=== PATIENT | male | born 1960 | race Caucasian/White ===

== ENCOUNTER 2017-07-19 16:31 | Outpatient (CLI) | payer OTHER ==
--- NOTE | 2017-07-19 23:12 | MRI ---
MRI CERVICAL SPINE: 07/19/17 HISTORY: Cervical radiculopathy, M54.12. Multiplanar and multisequence noncontrast enhanced MRI images cervical spine obtained. Comparison made to previous exam from 11/15/13. Marrow signal is unremarkable. C1-2: Unremarkable. C2-3: There is a broad based disc osteophyte complex centrally compressing the thecal sac resulting in some anterior compression of the thecal sac. No definite evidence of cord compression is seen. Mo derate bilateral neural foraminal narrowing is seen, worse on the right than on the left. C3-4: There is disc desiccation and broad based disc osteophyte complex. This is much larger in the left lateral recess region resulting in moderate to severe left L3-4 lateral recess stenosis. The ri ght neural foramen demonstrates moderate to severe stenosis. There is severe left C3-4 neural forami nal narrowing due to uncovertebral osteophyte hypertrophy. C4-5: Disc desiccation is seen. There is a broad based disc osteophyte complex compressing the theca l sac resulting in moderate central stenosis. There is moderate to severe right and moderate left si ded C4-5 neural foraminal narrowing due to uncovertebral osteophyte hypertrophy. This is not signifi cantly changed since the previous comparison exam. C5-6: There is minimal anterolisthesis of C5 on C6. There is broad based disc osteophyte complex com pressing the thecal sac resulting in mild central spinal stenosis. The neural foramen are patent. C6-7: Disc desiccation is seen. There is a broad based disc bulge resulting in mild but not signific ant degree of central stenosis. The neural foramen are patent. C7-T1: Mild disc desiccation is seen. Minimal left C7-T1 neural foraminal narrowing is seen. The rig ht neural foramen is patent. IMPRESSION: Multilevel mid and upper cervical degenerative changes with osteophytes and neural foraminal narrowi ng as described above. No significant interval change is seen since the previous exam from 11/15/13. POS: AVEL
== END 2017-07-19 16:32 | disposition home or self-care (01) ==
LOC: MRI 16:31
PROVIDERS: ATTEND Internal Medicine
DX: M47.22 Other spondylosis with radiculopathy, cervical region (principal); M50.30 Other cervical disc degeneration, unspecified cervical region; M99.51 Intervertebral disc stenosis of neural canal of cervical region; M25.78 Osteophyte, vertebrae
CPT/HCPCS: 72141

== ENCOUNTER 2018-07-07 07:10 | Outpatient (CLI) | payer BC ==
--- NOTE | 2018-07-07 08:08 | CT ---
CERVICAL SPINE CT SCAN WITHOUT IV CONTRAST: Date: 07/07/18 HISTORY: 57-year-old male with history of radiculopathy, exacerbation of chronic neck pain for decades. Left-s ided pain. COMPARISON: 07/19/17 MRI. FINDINGS: No evidence for overt fracture or facet dislocation. At C2-C3, there is severe bilateral foraminal stenosis with extensive posterior disc osteophytes, wit h mild central canal and moderate bilateral recess stenosis. At C3-C4, there are very extensive disc osteophytes, much worse in the left paracentral region, with severe bilateral lateral recess stenosis, greater on the left side and severe left foraminal stenosis , with moderately severe central canal stenosis. At C4-C5, there is mild lateral recess stenosis and moderate to severe bilateral foraminal stenosis. At C5-C6, there is moderate bilateral recess stenosis and severe left foraminal stenosis and moderate right foraminal stenosis. At C6-C7, there is mild to moderate lateral recess and foraminal stenosis. At C7-T1, there is no significant central canal or foraminal stenosis. IMPRESSION: Variable severity, multilevel, up to severe central canal, lateral recess, and foraminal stenosis, mo st marked at C3-C4 and C2-C3 levels, with little change from prior MRI. POS: AVEL
== END 2018-07-07 07:11 | disposition home or self-care (01) ==
LOC: SCSCT 07:10
PROVIDERS: ATTEND Neurological Surgery
DX: M54.12 Radiculopathy, cervical region (principal); M48.02 Spinal stenosis, cervical region; M99.81 Other biomechanical lesions of cervical region
CPT/HCPCS: 72125

== ENCOUNTER 2018-10-01 07:05 | Day surgery (SDC) | payer BC ==
[2018-09-28 17:05] VITALS: BMI 26.5
--- NOTE | 2018-09-30 21:25 | HP ---
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 After conservative methods including injections with Dr. Montez, he hopes to discuss surgery as a possible option. PAST MEDICAL HISTORY: Significant for migraines, reflux, gout, and osteoarthritis. ALLERGIES: NO KNOWN DRUG ALLERGIES. PHYSICAL EXAMINATION: The patient is alert and oriented x3. Gait is normal. Cervical range of motion slightly limited. Bilateral upper extremity motor exam is normal. ASSESSMENT: Cervical radiculopathy. PLAN: Dr. Jerome met with the patient, reviewed imaging, advocated for C3-4 ACDF. He explained to the patient the risks, benefits, and alternatives to the procedure. The patient expressed understanding and elected to move forward with surgery as discussed. I do believe that the patient is mentally competent and capable of making medical decisions for himself and will move forward with surgery as planned. Job ID: [id number]
[2018-10-01] MEDS ORDERED: CEFAZOLIN 2 GM/50 ML BAG ONE ×2 (08:01→15:00)
[2018-10-01] MEDS ORDERED: Midazolam HCl 2 mg/2 ml Vial ONE (08:01)
[2018-10-01] MEDS ORDERED: KETAMINE 100 MG/ML (5ML VIAL) ONE (08:47)
[2018-10-01] MEDS ORDERED: HYDROmorphone 2 MG/ML VIAL ONE ×3 (08:47→12:00)
[2018-10-01] MEDS ORDERED: Fentanyl 100 MCG/2 ML VIAL ONE ×2 (10:35→10:46)
--- NOTE | 2018-10-01 10:42 | OP ---
DATE OF PROCEDURE: 10/01/2018 RECORD SYSTEMS ANALYST: Sagar Lancaster PA-C INDICATION: Pain. DIAGNOSIS: Cervical radiculopathy. PROCEDURES PERFORMED: Anterior cervical diskectomy and fusion C3-C4. ANESTHESIA: General. TECHNIQUE: The patient was brought into the operating room and placed under general anesthesia. He was placed on table in the supine position. A transverse incision was planned over the lateral aspect of the neck on the right. After prepping and draping and after a preoperative pause, the incision was created. The underlying platysma muscle was identified and incised. A blunt tissue plane anterior to the sternocleidomastoid muscle was used to gain access to the prevertebral space. After identifying the appropriate level C-arm fluoroscopy, an annulotomy was performed in the C3-C4 disk space. All disk material was removed. A match stick drill bit was used to drill down large posterior osteophytes in the lateral recesses, the left greater than the right. After decompressing C3-C4, a 7 mm lordotic PEEK cage packed with allograft and autograft material were placed within the interbody space. An anterior cervical plate was then fashioned to the front of the spine and secured with a total of 4 fixed screws. Midline and lateral structures were inspected and found to be free from significant trauma. The wound was irrigated. Hemostasis was maintained throughout. The wound was then closed in anatomic layers and a pressure dressing was applied. There were no known procedural complications. Job ID: [id number]
[2018-10-01] MEDS ORDERED: Tamsulosin HCl 0.4 MG CAP ONE (10:59)
[2018-10-01] MEDS ORDERED: HYDROcodone/Acetaminophen 5/325 mg Tablet ONE (13:12)
[2018-10-01] MEDS ORDERED: Dexamethasone 20 MG/5 ML VIAL ONE (15:01)
[2018-10-01] MEDS ORDERED: ePHEDrine/0.9% NaCl/PF SYRINGE 50 mg/10 ml ONE (15:01)
[2018-10-01] MEDS ORDERED: Ondansetron PF 4 MG/2 ML Vial ONE (15:01)
[2018-10-01] MEDS ORDERED: Ketorolac Tromethamine 30 MG/ML VIAL ONE (15:01)
[2018-10-01] MEDS ORDERED: PHENYLEPHRINE-NS 100 MCG/ML 10 ML SYRINGE ONE (15:01)
[2018-10-01] MEDS ORDERED: PROPOFOL 200 MG/20 ML VIAL ONE (15:01)
[2018-10-01] MEDS ORDERED: Glycopyrrolate 0.2 MG/ML 5 ML SYRINGE ONE (15:01)
== END 2018-10-01 15:16 | disposition home or self-care (01) ==
LOC: SDC 07:05
PROVIDERS: ATTEND Neurological Surgery
PROC: 0RG10A0 Fusion of Cervical Vertebral Joint with Interbody Fusion Device, Anterior Approach, Anterior Column, Open Approach (ICD-10-PCS; principal; 2018-10-01)
PROC: 0RT30ZZ Resection of Cervical Vertebral Disc, Open Approach (ICD-10-PCS; principal; 2018-10-01)
DX: M54.12 Radiculopathy, cervical region (principal); M19.90 Unspecified osteoarthritis, unspecified site; M10.9 Gout, unspecified; K21.9 Gastro-esophageal reflux disease without esophagitis; G43.909 Migraine, unspecified, not intractable, without status migrainosus; Z79.82 Long term (current) use of aspirin; Z79.899 Other long term (current) drug therapy
CPT/HCPCS: 76000; 96374; C1713; C1776; J0131; J1100; J1170; J1885; J2250; J2405; J2704; J3010

== ENCOUNTER 2018-11-29 15:50 | Outpatient (CLI) | payer BC ==
--- NOTE | 2018-11-29 20:04 | MRI ---
MRI LEFT SHOULDER WITHOUT CONTRAST 11/29/18 HISTORY: Shoulder pain, M25.512. COMPARISON: None. FINDINGS: BICEPS TENDON: There is moderate extra-articular biceps tenosynovitis. The intra-articular biceps tendon with inters titial tearing and moderate tendinosis. LABRUM: There is a posterior labral tear at 9 o'clock. There is also superior labral tearing anterior and pos terior to the biceps labral anchor. CARTILAGE: Mild chondral thinning without full thickness defects. ROTATOR CUFF: Full thickness, full width supraspinatus and infraspinatus tendon tears from the footprint retracted to the medial humeral head. Torn fibers are severely tendinotic. The teres minor tendon is intact. Mi ld tendinosis of the subscapularis. Low grade interstitial undersurface partial tearing of the crania d post fibers. MUSCLES: There is greater than 50% atrophy of both the supraspinatus and infraspinatus muscles. The infraspina tus muscle is edematous with interstitial tearing extending along the torn tendon best seen on series 4, image 18. The deltoid musculature is intact. BONES: There was a type II acromion. There is narrowed subacromial space due to lack of rotator cuff tendon s occupying this space. Moderate degenerative disease of the acromioclavicular joints with edema in t he distal clavicle. No adenopathy. IMPRESSION: 1. Full thickness, full width supraspinatus and infraspinatus tendon tears retracted medial to t he humeral head with extensive tendinosis and interstitial tearing of the torn fibers. Greater than 50% atrophy of both the supraspinatus and infraspinatus muscles. 2. Interstitial tearing and tendinosis intra-articular biceps tendon. 3. Superior labral tear anterior and posterior to the biceps labral anchor as well as a posterio r labral tear at 9 o'clock. 4. Large subacromial, subdeltoid bursa effusion with mild synovitis. POS: HOME
== END 2018-11-29 15:51 | disposition home or self-care (01) ==
LOC: SCSMRI 15:50
PROVIDERS: ATTEND Orthopaedic Surgery
DX: M25.512 Pain in left shoulder (principal); M75.102 Unspecified rotator cuff tear or rupture of left shoulder, not specified as traumatic; S46.912A Strain of unspecified muscle, fascia and tendon at shoulder and upper arm level, left arm, initial encounter; S43.402A Unspecified sprain of left shoulder joint, initial encounter; M25.412 Effusion, left shoulder; M65.9 Synovitis and tenosynovitis, unspecified

== ENCOUNTER 2018-12-14 06:07 | Day surgery (SDC) | payer BC ==
[2018-12-13 14:19] VITALS: BMI 25.8
[2018-12-14] MEDS ORDERED: Fentanyl 100 MCG/2 ML VIAL ONE (06:37)
[2018-12-14] MEDS ORDERED: Midazolam HCl 2 mg/2 ml Vial ONE (06:37)
[2018-12-14] MEDS ORDERED: Ropivacaine 0.2% 550 ML 550 ML NERVE BLCK SCH (06:53)
[2018-12-14] MEDS ORDERED: Promethazine HCl 25 MG/ML VIAL IM PRN (06:53)
[2018-12-14] MEDS ORDERED: Ketorolac Tromethamine 30 MG/ML VIAL IVP PRN (06:53)
[2018-12-14] MEDS ORDERED: Zolpidem Tartrate 5 MG TAB PO PRN (06:53)
[2018-12-14] MEDS ORDERED: traMADol HCl 50 MG TAB PO PRN ×2 (06:53)
[2018-12-14] MEDS ORDERED: Ondansetron PF 4 MG/2 ML Vial IVP PRN (06:53)
[2018-12-14] MEDS ORDERED: HYDROcodone/Acetaminophen 10/325 mg Tablet PO PRN ×2 (06:53)
[2018-12-14] MEDS ORDERED: Fentanyl 100 MCG/2 ML VIAL IV PRN (06:58)
[2018-12-14 07:03] LABS: #Lymphocytes 1.2 thou/uL (1.20-3.40); #Monocytes 0.4 thou/uL (0.11-0.59); %Basophils 0.6 % (0.0-1.0); %Eosinophils 1.2 % (0.0-10.0); %Neutrophils 55.3 % (42.0-75.0); Hemoglobin 12.9 g/dL (14.0-18.0); Mean Corpuscular HGB CONC 32.2 g/dL (32.0-36.0); Mean Corpuscular Hemoglobin 34.5 pg (27.0-31.0); Mean Platelet Volume 6.3 fL (7.4-10.4); Platelet Count 184 thou/uL (130-400); RBC Distribution Width 13.8 % (11.5-14.5); Red Blood Cell (RBC) Count 3.74 mill/uL (4.70-6.10); White Blood Cell (WBC) Count 3.7 thou/uL (4.8-10.8)
[2018-12-14 07:11] LABS: Anion Gap 12 mmol/L (10-20); BUN (Urea Nitrogen) 16 mg/dL (8.4-25.7); Calc. Creatinine Clearance 100 mL/min (70-130); Calcium 9.4 mg/dL (7.8-10.44); Carbon Dioxide 29 mmol/L (22-29); Chloride 102 mmol/L (98-107); Estimated GFR-MDRD 82; Glucose 98 mg/dL (70-105); Sodium 139 mmol/L (136-145)
[2018-12-14] MEDS ORDERED: Promethazine HCl 25 MG/ML VIAL ONE (09:01)
[2018-12-14] MEDS ORDERED: EPINEPHrine 1 MG/10 ML Abboject SYRINGE ONE (09:34)
[2018-12-14] MEDS ORDERED: Morphine 2 MG/ML SYRINGE ONE ×2 (10:06→10:21)
[2018-12-14] MEDS ORDERED: HYDROcodone/Acetaminophen 5/325 mg Tablet ONE ×2 (10:48)
[2018-12-14] MEDS ORDERED: Ropivacaine 0.5% HCl/PF (150 MG/30 ML VIAL) ONE (11:09)
[2018-12-14] MEDS ORDERED: Ropivacaine 0.2% HCl/PF (40 MG/20 ML VIAL) ONE (11:09)
[2018-12-14] MEDS ORDERED: Glycopyrrolate 0.2 MG/ML 5 ML SYRINGE ONE (13:40)
[2018-12-14] MEDS ORDERED: Rocuronium Bromide 10 MG/ML (10ML VIAL) ONE (13:40)
[2018-12-14] MEDS ORDERED: PROPOFOL 200 MG/20 ML VIAL ONE (13:40)
[2018-12-14] MEDS ORDERED: Ketorolac Tromethamine 30 MG/ML VIAL ONE (13:40)
[2018-12-14] MEDS ORDERED: Dexamethasone 20 MG/5 ML VIAL ONE (13:40)
[2018-12-14] MEDS ORDERED: Ondansetron PF 4 MG/2 ML Vial ONE (13:40)
--- NOTE | 2018-12-14 14:03 | OP ---
DATE OF PROCEDURE: 12/14/2018 PROCEDURE PERFORMED: Left shoulder open acromioplasty, open rotator cuff debridement. CLINICAL DATA ASSISTANT: Eron Raymundo PA-C ESTIMATED BLOOD LOSS: Minimal. SPECIMENS: None. DRAINS: None. COMPLICATIONS: None. DESCRIPTION OF PROCEDURE: The patient was taken to the operating room, where general anesthesia was induced. The left arm was prepped and draped in sterile fashion. We made a standard deltoid-splitting approach. Anterior and inferior acromioplasty was performed. Irrigation was performed. I mobilized subscapularis. I mobilized the posterior aspect of the cuff, which was retracted at a fair amount. Unfortunately, the tissue was of poor quality. I put traction sutures in the cuff and tissue pulled away. I got all the way down to the teres minor, which appeared to be good tendon, but when I placed stitches, this does also pulled away. There was really not even good tissue to place in an Arthrex patch, which I had in the room. I debrided the rotator cuff. I debrided the stump of the cuff on the greater tuberosity. The biceps then appeared to be in good condition, so I left that alone. Irrigation was performed. Shoulder was closed with #1 Ethibond and subcutaneous tissue with 2-0 Vicryl and vanessa. Job ID: [id number]
== END 2018-12-14 11:55 | disposition home or self-care (01) ==
LOC: SDC 06:07
PROVIDERS: ATTEND Orthopaedic Surgery
DX: M75.122 Complete rotator cuff tear or rupture of left shoulder, not specified as traumatic (principal); S43.432A Superior glenoid labrum lesion of left shoulder, initial encounter; E78.00 Pure hypercholesterolemia, unspecified; M19.90 Unspecified osteoarthritis, unspecified site; M10.9 Gout, unspecified; Z79.1 Long term (current) use of non-steroidal anti-inflammatories (NSAID); Z79.899 Other long term (current) drug therapy
CPT/HCPCS: 36415; 80048; 85025; A4306; J0171; J2250; J2270; J2550; J2795; J3010

== ENCOUNTER 2019-05-09 13:33 | Outpatient (CLI) | payer BC ==
--- NOTE | 2019-05-09 15:27 | CT ---
CT OF THE CERVICAL SPINE WITHOUT CONTRAST: 05/09/19 INDICATION: History of cervical spinal stenosis with continued neck pain that radiates into the upper thoracic sp inal region. History of spinal fusion at C3-C4 in December of 2018. COMPARISON: CT of the cervical spine dated 07/07/18. TECHNIQUE: Multiple CT images were obtained of the cervical spine without IV contrast. Axial, coronal and sagitt al reformatted images were constructed from the raw data. FINDINGS: Since the comparison examination, there has been interval placement of an ACDF and intervertebral dis c cage at C3-C4. The anterior translation of C5 on C6 is stable. The mild anterior translation of C6 on C7 is stable. Craniocervical junction appears within normal limits. At the C2-C3 level, there remains uncovertebral hypertrophy and facet degenerative change inducing mi ld osseous neural foraminal narrowing bilaterally. At C3-4, there is a residual osteophyte complex with facet joint degenerative change likely inducing some residual mild to moderate osseous central canal narrowing which is relatively stable. There is m ild right and moderate left osseous neural foraminal narrowing which appears stable. At C4-5, there is uncovertebral hypertrophy and facet joint degenerative change likely inducing mild left and moderate to severe right osseous neural foraminal narrowing which appears stable. At C5-6, there is uncovertebral hypertrophy and facet degenerative change without appreciable osseous central canal and neural foraminal narrowing. At C6-7, there is no appreciable osseous central canal or neural foraminal narrowing. At C7-T1, there is no appreciable osseous central canal or neural foraminal narrowing. Lung apices demonstrate mild interstitial fibrotic change. The visualized prevertebral soft tissues a ppear within normal limits. IMPRESSION: 1. Interval postoperative change of an ACDF at C3-C4. The mild to moderate central canal narrowi ng at C3-C4 appears similar appearing. The multilevel neural foraminal narrowing is stable. 2. Degenerative anterior translation of C5 on C6 and C6 on C7 is stable. POS: OFF
--- NOTE | 2019-05-09 15:43 | MRI ---
Exam: MRI cervical spine without contrast HISTORY: Cervical spinal stenosis. Neck pain.. COMPARISON: 07/19/2017 FINDINGS: Interval placement of anterior fusion plate at C3 and C4. There is a disc prosthesis at the C3-C4 le phu. Cervical spine vertebral body height is maintained. No fracture. No significant STIR hyperintensity to suggest vertebral body edema or ligamentous injury. 1.5 mm of anterolisthesis of C5 upon C6 and 2.2 mm of anterolisthesis of C6 upon C7. Visualized brain parenchyma, cervicomedullary junction, cervical cord and the upper thoracic cord hav e a normal size and signal intensity C2-C3: Moderate central canal stenosis secondary to a broad-based disc osteophyte complex. Moderate b ilateral neural foraminal narrowing. C3-C4: Central/left paracentral osteophyte ridge. Mass effect and deformity the left hemicord, withou t cord signal abnormality. Moderate narrowing of the left aspect of the central spinal canal. Right neural foramen and left neural foramina are moderately narrowed due to uncal vertebral hypertrophy C4-C5: Broad-based disc bulge effacing the ventral subarachnoid space. There is contact upon the vent ral cord, without T2 hyperintensity in the cord. Mild central canal stenosis. Mild to moderate bilateral foraminal narrowing due to uncovertebral hypertrophy. There is severe bilateral (right grea ter than left) facet hypertrophy. C5-C6: Broad-based disc bulge abuts the thecal sac. Ventral subarachnoid space is effaced. Disc mater ial contacts the ventral aspect of the cord without cord signal abnormality or deformity. Mild central canal stenosis. Right neural foramen is patent. Mild left foraminal narrowing C6-C7: Broad-based disc bulge abuts the thecal sac. Subarachnoid space maintained. Mild central canal stenosis. Neural foramina are patent bilaterally. C7-T1: Broad-based disc bulge abuts the thecal sac. Subarachnoid space is nearly effaced. There is so me mass effect and deformity of the left hemicord. Mild central canal stenosis. Bilaterally, neural foramina are patent. IMPRESSION: 1. Cervical fusion from C3 through C4. 2. Moderate central canal stenosis at C2-C3. 3. Moderate neural foraminal narrowing at C3-C4 and mild to moderate narrowing of the neural foramina at C4-C5. Transcribed Date/Time: 05/09/2019 3:50 PM
--- NOTE | 2019-05-09 15:52 | MRI ---
MRI thoracic spine noncontrast: DATE: 05/09/2019 HISTORY: 58-year-old male with mid thoracic back pain. COMPARISON: None FINDINGS: ACDF hardware at C3 and C4. Severe cervical central spinal canal stenosis with chronic cord compressi on in the cervical spine. See separate report of C-spine MRI. Mild depressions of the superior endplates of T4, T5, and T11 surrounding Schmorl's nodes. Incomplete ly visualized depression of superior endplate of L2 in the lumbar spine. None of these are associated with bone marrow edema. Small focal disc herniations or disc-osteophyte complexes encroach upon the anterior aspect of the sp inal canal at multiple levels. Some of the more prominent such protrusions include: T4-5: Small central disc protrusion mildly indents the ventral surface of spinal cord. T5-6: Small right paracentral focal disc herniation T6-7: Small left lateral disc protrusion minimally indents the left ventral surface of spinal cord. T7-8:Small left lateral disc protrusion minimally indents the left ventral surface of spinal cord. T8-9: Small left lateral disc protrusion minimally indents the left ventral surface of spinal cord an d also minimally displaces the spinal cord to the right. T9-10:Small left lateral disc protrusion minimally indents the left ventral surface of spinal cord. T10-11: Midline and bilateral paracentral broad-based shallow disc protrusion does not contact spinal cord. Conus medullaris terminates at L1. No high-grade central spinal canal stenosis at any level. No major pathology of perivertebral spaces identified. IMPRESSION: 1. Mild old compression fractures of T4, T5, and T11. 2. Mild thoracic spondylosis with multilevel small focal disc herniations or disc-osteophyte complexe s protruding into the spinal canal, some minimally impinging on the spinal cord. 3. No high-grade central spinal canal stenosis at any level in the thoracic spine. 4. Severe central spinal canal stenosis with chronic cord compression in the cervical spine. See sepa rate report of C-spine MRI.
== END 2019-05-09 13:34 | disposition home or self-care (01) ==
LOC: SCSCT 13:33
PROVIDERS: ATTEND Neurological Surgery
DX: M48.02 Spinal stenosis, cervical region (principal); Z98.1 Arthrodesis status; M54.6 Pain in thoracic spine; M47.812 Spondylosis without myelopathy or radiculopathy, cervical region; M48.04 Spinal stenosis, thoracic region; M47.814 Spondylosis without myelopathy or radiculopathy, thoracic region
CPT/HCPCS: 72125; 72141; 72146

== ENCOUNTER 2019-08-17 14:43 | Emergency (ER) | payer BC ==
[2019-08-17] MEDS ORDERED: HYDROmorphone 0.5 MG/0.5 ML SYRINGE ONE (15:18)
[2019-08-17] MEDS ORDERED: Lorazepam 2 MG/ML VIAL ONE (15:58)
--- NOTE | 2019-08-17 17:21 | MRI ---
MRI Cervical Spine WO Con History: Pain Comparison: Cervical spine MRI April 2019 Findings: Exam is nondiagnostic due to severe motion throughout the exam. Large postoperative seroma. Disc space evaluation is unable to be performed. Laminectomy changes upper cervical spine. Impression: Nondiagnostic examination due to severe motion. If necessary, repeat examination under an esthesia with be helpful.
--- NOTE | 2019-08-17 17:51 | MRI ---
MRI Thoracic Spine WO Con History: Pain Comparison: MRI thoracic spine April Findings: No acute fracture no malalignment. No marrow infiltrative process. The superior endplate compression deformities at T4, T5, and T11 are similar. No cord compression. The disc osteophyte complexes are similar with minimal effacement of ventral CSF space. No new disc herniation. Impression: Unchanged examination of the thoracic spine. No cord impingement. Disc osteophyte complex es are similar. No acute fracture.
[2019-08-17 22:08] LABS: Bilirubin Negative (Negative); Blood, Urine Negative (Negative); Clarity Clear (Clear); Glucose, Urine (Dipstick) Normal (Negative); Leukocyte Negative Leu/uL (Negative); Nitrite Negative (Negative); Protein, Urine (Dipstick) Negative (Neg-Trace); Urobilinogen Normal mg/dL (Less than 2)
[2019-08-18] MEDS ORDERED: Morphine 4 MG/ML VIAL ONE (19:40)
== END 2019-08-17 23:22 | disposition short-term general hospital (02) ==
LOC: EEVIPCON 14:43 → ERS 14:43
DX: L76.82 Other postprocedural complications of skin and subcutaneous tissue (principal); R53.1 Weakness; K21.9 Gastro-esophageal reflux disease without esophagitis; E78.5 Hyperlipidemia, unspecified; F41.9 Anxiety disorder, unspecified; F32.9 Major depressive disorder, single episode, unspecified; Z79.899 Other long term (current) drug therapy
CPT/HCPCS: 72141; 72146; 81003; 96374; 96375; J1170; J2060; J2270

== ENCOUNTER 2019-09-17 01:35 | Inpatient (IN) | payer BC ==
[2019-09-17 02:12] LABS: #Basophils 0.1 thou/uL (0.0-0.2); #Eosinphils 0.1 thou/uL (0.0-0.7); #Monocytes 0.9 thou/uL (0.11-0.59); %Basophils 0.6 % (0.0-1.0); %Eosinophils 0.9 % (0.0-10.0); %Lymphocytes 21.8 % (21.0-51.0); %Neutrophils 66.8 % (42.0-75.0); Hemoglobin 9.9 g/dL (14.0-18.0); Mean Platelet Volume 6.3 fL (7.4-10.4); Platelet Count 603 thou/uL (130-400); RBC Distribution Width 15.8 % (11.5-14.5); White Blood Cell (WBC) Count 8.9 thou/uL (4.8-10.8)
[2019-09-17 02:19] LABS: INR-International Normal Ratio 1.2; PTT 38.1 SEC (22.9-36.1); Prothrombin Time 14.9 SEC (12.0-14.7)
[2019-09-17 02:34] LABS: ALT (SGPT) 17 U/L (8-55); AST (SGOT) 36 U/L (5-34); Albumin 3.8 g/dL (3.5-5.0); Alkaline Phosphatase 115 U/L (40-110); Anion Gap 14 mmol/L (10-20); BUN (Urea Nitrogen) 21 mg/dL (8.4-25.7); Bilirubin, Total 0.3 mg/dL (0.2-1.2); Calc. Creatinine Clearance 0 mL/min (70-130); Calcium 9.8 mg/dL (7.8-10.44); Carbon Dioxide 27 mmol/L (22-29); Chloride 96 mmol/L (98-107); Estimated GFR-MDRD 25; Globulin 2.8 g/dL (2.4-3.5); Glucose 96 mg/dL (70-105); Protein, Total 6.6 g/dL (6.0-8.3); Sodium 133 mmol/L (136-145)
[2019-09-17 03:48] LABS: Bacteria/HPF None Seen HPF (None Seen); Bilirubin Negative (Negative); Blood, Urine Negative (Negative); Clarity Turbid (Clear); Glucose, Urine (Dipstick) Normal (Negative); Leukocyte Negative Leu/uL (Negative); Nitrite Negative (Negative); Protein, Urine (Dipstick) 30 mg/dL (Neg-Trace); RBC/HPF 0-3 HPF (0-3); Squamous Epithelial 0-3 HPF (0-3); Urobilinogen Normal mg/dL (Less than 2)
[2019-09-17] MEDS ORDERED: Acetaminophen 325 MG TAB PO PRN (06:04)
[2019-09-17] MEDS ORDERED: fentaNYL 50 mcg/hour Patch TD SCH (06:04)
[2019-09-17] MEDS: Sodium Chloride 0.9% 1,000 ML IV SCH ×2 (06:20→21:13)
--- NOTE | 2019-09-17 06:21 | HP ---
PRIMARY CARE PHYSICIAN: Nadia Tong MD CHIEF COMPLAINT: Altered mental status. 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 He says that he had the surgery, but while he was in the hospital, he developed high fever and developed sepsis. He says he was diagnosed with ESBL E coli and was placed on IV antibiotics. He also says that during his hospitalization, he was also found to have bilateral pulmonary embolisms and was placed on Eliquis. He was treated and then released on this past . When he was at home, he suffered a fall and his partner found him on the floor and states that he was altered. His partner says that his words were jumbled and it was hard to understand, and then yesterday, it was his birthday, and he asked for cake, and says that he took the top part off the cake and put it off to the side and then apparently put some food in an unusual location and seemed confused. The patient himself says he has been having difficulties with word finding for the past year. He says he has been seeing a psychologist for this. He admits to me that he has been very depressed lately and says that he is on an SSRI, but he could not remember the name of it and states that he has been very concerned that he could be developing dementia as his father had Alzheimer disease. Currently, the patient is having extreme difficulty finding words and in fact, it took almost 15 to 20 minutes just to get a partial list of his medications. He has difficulty recollecting what happened to him while he was in the hospital. He does say that he did have an episode of confusion where he had to be placed in restraints and says this was reaction to medications. REVIEW OF SYSTEMS: All systems were reviewed and are negative except for that mentioned in the history of present illness. PAST MEDICAL HISTORY: Significant for migraines, gastroesophageal reflux disease, gout, osteoarthritis, bilateral pulmonary embolisms, restless legs syndrome, depression. He is HIV positive. PAST SURGICAL HISTORY: He has had anterior cervical disk fusion and shoulder arthroplasty. ALLERGIES: NO KNOWN DRUG ALLERGIES. SOCIAL HISTORY: He is a nonsmoker and nondrinker. No children, and he does have a partner. FAMILY HISTORY: Significant for Alzheimer disease in his father. Sister had osteoarthritis. Mother had Parkinson disease. CURRENT MEDICATIONS: Include; 1. Bactrim DS. 2. Prednisone as needed. 3. Fentanyl 75 mcg every three days. 4. Zofran 8 mg as needed. 5. Crestor 20 mg at bedtime. 6. Amitriptyline 50 mg at bedtime. 7. Bupropion XL 300 mg daily. 8. Eliquis 5 mg twice a day. 9. Celebrex 200 mg twice a day. 10. Zonisamide 50 mg t.i.d. 11. Omeprazole 40 mg at bedtime. 12. at bedtime. 13. Carvedilol 6.25 mg twice a day. 14. Valacyclovir 500 mg daily. 15. Requip 2 mg at bedtime. 16. Genvoya daily and an SSRI. PHYSICAL EXAMINATION: GENERAL: He is alert and oriented. He appears to be in no acute distress. He is well developed and well nourished. VITAL SIGNS: Blood pressure 125/60, heart rate 80, respiratory rate of 16, and he is afebrile. HEENT: Pupils are equal, round, and reactive to light. Extraocular muscles are intact. Sclerae are anicteric. Throat, no erythema, no exudates, but he does have dry mucous membranes. NECK: Neck is in a C-collar. LUNGS: Clear to auscultation. No wheezing. No rales. No rhonchi. CARDIOVASCULAR: He has a normal S1 and S2. There is no S3 or S4. No murmurs, clicks, or rubs. ABDOMEN: Obese. It is soft, nontender, and nondistended. Positive for bowel sounds. No rebound. No guarding. No organomegaly. EXTREMITIES: There is no clubbing or cyanosis. No edema. No calf tenderness. No joint effusions. NEUROLOGIC: Grossly nonfocal. LABORATORY DATA: Lab results; white blood cell count 8.9, hemoglobin 9.9, hematocrit is 30, platelet count is 603. INR is 1.2. Sodium 133, potassium 4.0, chloride is 96, CO2 is 27, BUN of 21, creatinine 2.63, glucose is 96. Urinalysis is essentially negative. There was evidence of hyaline casts. ASSESSMENT: This is a 59-year-old gentleman, who presents with altered mental status and a fall, the etiology of which is unknown. It could be medication related as he is on a fairly high dose of the fentanyl patch along with other medications, which are at high risk for falls, including the amitriptyline and Requip. He also was found to have acute kidney injury, which could be due to volume depletion. He is also on Bactrim DS, which can cause an interstitial nephritis and he is also on NSAIDs. 1. For the altered mental status. This seems to be improving. We may need to cut back on the dose of the fentanyl patch and possibly the Requip as well. Also request the records from [facility]. 2. Acute kidney injury. We will place him on IV fluids for gentle hydration. Check the urine electrolytes so as to calculate fractional excretion of sodium as well as check a renal ultrasound and urine eosinophils because of the Bactrim. 3. History of human immunodeficiency virus positive. The patient says he has been human immunodeficiency virus positive for many years since residency. He sees Dr. Aleman regularly and says his viral load has been undetectable. We will consult Dr. Aleman for further recommendations. Continue Genvoya. He will probably need to take . 4. History of pulmonary embolism. Continue Eliquis twice daily. 5. Depression. Need to reconcile and restart his antidepressant medications. We will also consider a PT and OT consult. Job ID: [id number]
[2019-09-17 06:28] VITALS: BMI 23.6
[2019-09-17 07:50] LABS: Creatinine, Urine 39.41 mg/dL (63-166); Sodium, Urine Less than 20 mmol/L (Not Available)
[2019-09-17] MEDS: Carvedilol 6.25 MG TAB PO SCH ×2 (08:16→17:29)
--- NOTE | 2019-09-17 08:47 | ULT ---
Exam: Bilateral renal ultrasound HISTORY: Acute kidney insufficiency. COMPARISON: None FINDINGS: Right kidney: Normal cortical echotexture. No hydronephrosis. Right kidney measurements: 5.2 x 5.5 x 11.6 cm. Left kidney: Normal cortical echotexture. No hydronephrosis Left kidney measurements 5.8 x 5.3 x 11.8 cm. Urinary bladder: Normal mucosa. IMPRESSION: No hydronephrosis.
[2019-09-17] MEDS ORDERED: Apixaban 5 MG TAB PO SCH (09:00)
--- NOTE | 2019-09-17 09:11 | CT ---
PRELIMINARY REPORT/[facility]/EMERGENCY AFTER HOURS PROCEDURE: HISTORY: [id number] presents to ED for evaluation of fall and AMS. Patient had a C spine fusion and laminec melissa at [facility] on 09/02/19. While he was there he was treated for a UTI and a small PE. Pt was discharged . Starting on Monday, the patient c/o muscle weakness to bilateral legs. Par tner reports that today he came home and the patient was on the ground after falling and was altered. Unknown LOC. Partner reports that the patient had normal mental status this morning. Patient denies urinary complaints and incontinence of bowel or bladder. Denies N/V/D. CT LUMBAR SPINE TECHNIQUE: Multiplanar reconstruction. COMPARISON: None. LIMITATIONS: None. FRACTURES: None. ALIGNMENT: Normal. MINERALIZATION: Decreased. VERTEBRA BODIES: L2 upper endplate Schmorl's node. DISC SPACES: Moderately narrowed with vacuum phenomenon at L1-L2. L3-L4 and L4-L5 broad-based disc b ulges, measuring 2.7 mm and 8.0 mm, respectively. POSTERIOR ELEMENTS: Normal. NEUROFORAMEN: Moderate bilateral L4-L5 narrowing. SPINAL CANAL: Mildly narrowed at L3-L4 and moderate to severe narrowing at L4-L5. PARASPINAL TISSUES: Normal. OTHER: None. IMPRESSION: Large L4-L5 broad-based disc bulge with moderately severe spinal canal stenosis. ELECTRONICALLY SIGNED BY: Vivian Barahona M.D. Sep 17, 2019 3:06:30 AM CLINICAL RESEARCH MANAGER This report is intended for review by the ordering physician only, in accordance of law. If you recei ve this report in error, please call [facility] at [phone]. FINAL REPORT CT LUMBAR SPINE WITHOUT CONTRAST: Date: 09/17/19 HISTORY: Fall. Altered mental status. Recent cervical fusion. FINDINGS/IMPRESSION: Chronic changes involving the superior end plate of L2 with associated Schmorl's node. Vertebral body heights are maintained. There is no fracture. There are varying degrees of central canal stenosis an d neural foraminal narrowing on the basis of degenerative change. Limited evaluation by technique. At least mild to moderate central canal stenosis at L3-L4. Moderate to severe central canal stenosis at L4-L5. Mild to moderate central canal stenosis at L5-S1. There is partial obscuration of bilateral t raversing S1 nerve roots. Vacuum disc phenomenon is noted. This report is in agreement with the initial report by [facility]. POS: OFF
--- NOTE | 2019-09-17 09:12 | RAD ---
Exam: Chest one view HISTORY:Fall. Altered mental status. Comparison: None FINDINGS: Cardiac silhouette: Normal Aorta: Unremarkable Pulmonary vessels: Normal Costophrenic angles: Clear LUNGS: No masses or consolidation. Pneumothorax: None Osseous abnormalities: Incompletely evaluated fusion hardware IMPRESSION: No acute cardiopulmonary process.
--- NOTE | 2019-09-17 09:12 | CT ---
PRELIMINARY REPORT/[facility]/EMERGENCY AFTER HOURS PROCEDURE: HISTORY: [id number] presents to ED for evaluation of fall and AMS. Patient had a C spine fusion and laminec melissa at [facility] on 09/02/19. While he was there he was treated for a UTI and a small PE. Pt was discharged . Starting on Monday, the patient c/o muscle weakness to bilateral legs. Par tner reports that today he came home and the patient was on the ground after falling and was altered. Unknown LOC. Partner reports that the patient had normal mental status this morning. Patient denies urinary complaints and incontinence of bowel or bladder. Denies N/V/D. CT THORACIC SPINE TECHNIQUE: Multiplanar reconstruction. COMPARISON: None. LIMITATIONS: None. PRIOR SURGERY/HARDWARE: Status post posterior fusion with hardware spanning from C2 to T3. The hardw are appears intact. FRACTURES: None. ALIGNMENT: Normal. MINERALIZATION: Decreased. VERTEBRA BODIES: Mild compression deformities at T1, T2, T4 and T11. DISC SPACES: Multilevel disc space narrowing and vacuum phenomena. POSTERIOR ELEMENTS: Normal. SPINAL CANAL: No evidence of spinal stenosis. PARASPINAL TISSUES: Postsurgical changes from recent posterior spinal fusion. No soft tissue air or focal fluid collection seen. OTHER: Small strandy densities bilaterally, likely atelectasis/scarring. IMPRESSION: No acute thoracic spine fracture. ELECTRONICALLY SIGNED BY: Vivian Barahona M.D. Sep 17, 2019 3:13:51 AM HAY CHOPPER This report is intended for review by the ordering physician only, in accordance of law. If you recei ve this report in error, please call [facility] at [phone]. FINAL REPORT CT THORACIC SPINE WITHOUT CONTRAST: Date: 09/17/19 HISTORY: Recent cervical fusion. Fall. Pain. FINDINGS/IMPRESSION: There appear to be mild compression fractures at T1, T2, T4, and T11. Sclerosis of the end plates sug gest a chronic process. Correlate clinically. Definite acute fractures are not appreciated. This report is in agreement with the initial report by [facility]. POS: OFF
--- NOTE | 2019-09-17 09:13 | CT ---
PRELIMINARY REPORT/[facility]/EMERGENCY AFTER HOURS PROCEDURE: HISTORY: M59 presents to ED for evaluation of fall and AMS. Patient had a C spine fusion and laminec melissa at [facility] on 09/02/19. While he was there he was treated for a UTI and a small PE. Pt was discharged . Starting on Monday, the patient c/o muscle weakness to bilateral legs. Par tner reports that today he came home and the patient was on the ground after falling and was altered. Unknown LOC. Partner reports that the patient had normal mental status this morning. Patient denies urinary complaints and incontinence of bowel or bladder. Denies N/V/D. CT CERVICAL SPINE TECHNIQUE: Multiplanar reformatted images provided. COMPARISON: None. LIMITATIONS: None. PRIOR SURGERY/HARDWARE: Posterior fusion hardware spanning from C2 to T3. Anterior plate and screw f ixation hardware at C3 and C4 with interbody spacer. No signs of hardware complication. Prior bilat eral C2 to C7 laminectomies. FRACTURES: None. ALIGNMENT: Grade I anterolisthesis of C6 on C7. MINERALIZATION: Decreased. DISC SPACES: Mild diffuse narrowing. POSTERIOR ELEMENTS: Multilevel facet arthropathy and neuroforaminal narrowing. SPINAL CANAL: Limited evaluation due to streak artifact. PARASPINAL SOFT TISSUES: Postsurgical changes at midline in the posterior neck. OTHER: None. CONCLUSION: No acute cervical spine fracture. Postsurgical changes from recent spinal surgery. ELECTRONICALLY SIGNED BY: Vivian Barahona M.D. Sep 17, 2019 3:22:46 AM GEOLOGICAL SAMPLE TESTER This report is intended for review by the ordering physician only, in accordance of law. If you recei ve this report in error, please call [facility] at [phone]. FINAL REPORT CT CERVICAL SPINE WITHOUT CONTRAST: Date: 09/17/19 HISTORY: Cervical fusion and laminectomy at [facility] on 09/02/19. Fall. COMPARISON: 05/09/19. FINDINGS/IMPRESSION: This report is in agreement with the initial report by [facility]. Extensive postsurgical change as described in the initial report by [facility]. There appears t o be scar tissue at the operative site. Evaluation of the central spinal canal and neural foramina ar e limited due to technique. Significant neural foraminal narrowing is noted. There is no evidence of fracture. Postoperative changes in soft tissues of midline of neck are noted. There appears to be a m ild compression fracture involving the superior aspect of T1 and T2. There does appear to be sclerosi s which suggests a possible chronic process. Correlate clinically for point tenderness. POS: OFF
--- NOTE | 2019-09-17 09:15 | CT ---
PRELIMINARY REPORT/[facility]/EMERGENCY AFTER HOURS PROCEDURE: HISTORY: M59 presents to ED for evaluation of fall and AMS. Patient had a C spine fusion and laminec melissa at [facility] on 09/02/19. While he was there he was treated for a UTI and a small PE. Pt was discharged . Starting on Monday, the patient c/o muscle weakness to bilateral legs. Par tner reports that today he came home and the patient was on the ground after falling and was altered. Unknown LOC. Partner reports that the patient had normal mental status this morning. Patient denies urinary complaints and incontinence of bowel or bladder. Denies N/V/D. CT HEAD TECHNIQUE: Without contrast. COMPARISON: None. LIMITATIONS: None. BRAIN: No acute hemorrhage. Normal pope/white matter differentiation. No mass, mass effect or midli ne shift. Normal sized sulci and cisterns. VENTRICLES: No hydrocephalus. EXTRA-AXIAL SPACES: No hemorrhages, fluid collections, or masses. CALVARIUM/SKULL BASE: Normal. FACE/SINUSES: Visualized portions normal. SOFT TISSUES: Postsurgical changes at midline in the suboccipital region, with overlying skin vanessa . OTHER: Mildly calcified internal carotid arteries. CONCLUSION: No acute intracranial abnormality. ELECTRONICALLY SIGNED BY: Vivian Barahona M.D. Sep 17, 2019 3:00:52 AM OIL WELL DRILLER This report is intended for review by the ordering physician only, in accordance of law. If you recei ve this report in error, please call [facility] at [phone]. FINAL REPORT HEAD CT WITHOUT CONTRAST: Date: 09/17/19 HISTORY: Fall. Altered mental status. COMPARISON: None. FINDINGS/IMPRESSION: This report is in agreement with the initial report by [facility]. No intracranial post-traumat ic sequelae. POS: OFF
[2019-09-17] MEDS ORDERED: rOPINIRole HCl 1 MG TAB PO PRN (19:28)
[2019-09-17] MEDS: rOPINIRole HCl 1 MG TAB PO SCH ×2 (20:53→21:34)
[2019-09-17] MEDS: Apixaban 2.5 MG TAB PO SCH ×2 (20:53→21:27)
[2019-09-17] MEDS ORDERED: rOPINIRole HCl 1 MG TAB PO SCH (21:00)
[2019-09-17] MEDS ORDERED: HYDROcodone/Acetaminophen 5/325 mg Tablet PO SCH (21:45)
[2019-09-18 05:52] LABS: #Lymphocytes 1.7 thou/uL (1.20-3.40); #Monocytes 0.6 thou/uL (0.11-0.59); #Neutrophils 2.3 thou/uL (1.40-6.50); %Basophils 0.3 % (0.0-1.0); %Eosinophils 0.9 % (0.0-10.0); %Lymphocytes 36.5 % (21.0-51.0); %Monocytes 12.4 % (0.0-10.0); %Neutrophils 49.9 % (42.0-75.0); Mean Corpuscular HGB CONC 33.2 g/dL (32.0-36.0); Mean Corpuscular Hemoglobin 33.6 pg (27.0-31.0); Platelet Count 469 thou/uL (130-400); RBC Distribution Width 15.7 % (11.5-14.5); White Blood Cell (WBC) Count 4.5 thou/uL (4.8-10.8)
[2019-09-18 06:20] LABS: Anion Gap 11 mmol/L (10-20); BUN (Urea Nitrogen) 16 mg/dL (8.4-25.7); BUN/Creatinine Ratio 10.67; Calc. Creatinine Clearance 58 mL/min (70-130); Calcium 8.8 mg/dL (7.8-10.44); Carbon Dioxide 25 mmol/L (22-29); Chloride 106 mmol/L (98-107); Estimated GFR-MDRD 48; Glucose 89 mg/dL (70-105); Phosphorus 5.2 mg/dL (2.3-4.7); Potassium 3.5 mmol/L (3.5-5.1); Sodium 138 mmol/L (136-145)
[2019-09-18] MEDS ORDERED: FLU VACC QS2019-20(6MOS UP)/PF 60 MCG/0.5 ML SYRINGE IM ONE (08:15)
[2019-09-18] MEDS: Apixaban 2.5 MG TAB PO SCH (09:22)
[2019-09-18] MEDS: Carvedilol 6.25 MG TAB PO SCH (09:22)
[2019-09-18] MEDS ORDERED: HYDROcodone/Acetaminophen 5/325 mg Tablet PO PRN (10:31)
[2019-09-18] MEDS ORDERED: HYDROcodone/Acetaminophen 10/325 mg Tablet PO PRN (10:31)
[2019-09-18] MEDS ORDERED: Docusate 100 MG CAP PO PRN (10:31)
[2019-09-18] MEDS ORDERED: Gabapentin 300 MG CAP PO SCH (15:00)
[2019-09-18] MEDS ORDERED: Zonisamide 25 MG CAP PO SCH (15:00)
--- NOTE | 2019-09-18 16:21 | DIS ---
DATE OF ADMISSION: 09/17/2019 DATE OF DISCHARGE: 09/18/2019 DISCHARGE DISPOSITION: Home. FOLLOWUP: 1. Follow up with primary care physician Nadia Tong next week. 2. Repeat CBC and basic metabolic profile next week are recommended. Primary care physician advised to follow. DISCHARGE MEDICATIONS: Carvedilol dose was reduced to 3.125 b.i.d. The patient was advised to discontinue Bactrim for now. The patient was seen on the day of discharge. Denies any new complaints. No chest pain, shortness of breath, or palpitations reported. SIGNIFICANT LABORATORY DATA: Creatinine on admission 2.63, at discharge 1.5. Sodium 133 on admission and 135 on discharge. Hemoglobin 8.0 with hematocrit 24.2. Eosinophil smear was negative. Urinalysis showed 7 to 10 wbc's without any bacteria. Blood cultures and urine cultures are negative so far. Primary care physician advised to follow up on the final cultures. Chest x-ray was negative for acute findings. Lumbar spine CT showed broad-based disk bulge at L4 and L5 with moderately severe spinal canal stenosis. CT of the cervical spine and thoracic spine was negative for acute fractures. CT scan of the brain was negative for acute findings. BRIEF HOSPITAL COURSE: The patient is a 59-year-old male presented to the emergency room with altered mentation. He was recently discharged from [facility] in [place]. Please refer to the history and physical for further details. The patient was admitted to the hospital with a diagnosis of acute kidney injury, probably secondary to Bactrim. His mentation improved with IV hydration. Fentanyl patch was reduced to 50 mcg during this hospital stay. His renal function has improved to 1.50 from 2.63. The patient is requesting to be discharged. He was advised to maintain adequate oral intake. Renal ultrasound was negative for obstructive uropathy. Repeat CBC and basic metabolic profile next week are recommended. Primary care physician advised to follow. He was advised to avoid nephrotoxic agent. He was also evaluated by Dr. Aleman, who recommended discontinuation of Bactrim. FINAL DIAGNOSES: 1. Toxic metabolic encephalopathy, multifactorial. 2. Acute kidney injury on chronic kidney disease stage 2, multifactorial, improving. 3. Hyponatremia. 4. Moderate protein calorie malnutrition. 5. History of pulmonary embolism, on anticoagulation. 6. Recent hospitalization at [facility] for sepsis, septic shock complicated with pulmonary embolism. 7. Gastroesophageal reflux disease. 8. Restless legs syndrome. 9. Anxiety. 10. Depression, mild stable. The patient denies any suicidal ideation. 11. History of HIV, followed by Dr. Aleman. 12. Macrocytic anemia. PLAN: Plan of care was discussed with the patient in detail. He stated understanding. Job ID: [id number]
--- NOTE | 2019-09-18 16:23 | CON ---
DATE OF CONSULTATION: 09/18/2019 REASON FOR CONSULTATION: Possible sepsis. HISTORY OF PRESENT ILLNESS: A 59-year-old gentleman whom I follow in the clinic usually once a year with a history of HIV seropositive status. He is on Genvoya for many years now, had been on Atripla before and switched because of a CONDENSER TESTER side effects. His last CD4 cell count was in the 1400 range and viral load less than 20 in July 2018. This year he has had 2 procedures in the C-spine, one done in September and then because of persistence of symptoms, he got a second opinion. In [place], he had a second procedure via the posterior approach with fusion from C2-T2. Postoperatively, the patient had reported sepsis from ESBL E coli urinary tract infection. I do not have documentation of this, but he also had diagnosed pulmonary embolism and was placed on Eliquis. After discharge, he developed altered mental status and was found by his partner on the floor, was brought to the emergency room at [facility] pretty much about 4 to 5 days after discharge from [facility]. He did not have headaches. No visual symptoms, sore throat, cough, or sputum production. No dyspnea. No chest pain. Not much pain at the surgical site. He did have weakness in the lower extremities. Some constipation, which was being managed with MiraLAX. No dysuria or difficulty with voiding. No joint symptoms. PAST MEDICAL HISTORY: HIV infection, recurrent HSV, GERD, diverticulosis, hyperlipidemia, hypertension, rotator cuff surgery, anterior diskectomy and fusion C3-C4, T3-T4 laminectomy, and recent fusion in [facility], pulmonary embolism recently diagnosed, and ESBL E coli sepsis diagnosed postoperatively. ALLERGIES: NONE. CURRENT MEDICATIONS: 1. P.r.n. Wheelwright. 2. Eliquis. 3. Coreg. 4. Colace. 5. Lexapro. 6. Duragesic. 7. Neurontin. 8. Genvoya. 9. Protonix. 10. Metamucil. 11. Requip. 12. Zanaflex. 13. Zonisamide. PHYSICAL EXAMINATION: VITAL SIGNS: He has been afebrile in the hospital stay. BP 101/67, pulse 90, respirations 18, and O2 saturation 94%. PSYCH: Still a little bit confused. He has a hard time remembering the dates of discharge from [facility], but a little bit confused with his room numbers here in the hospital. SKIN: Shows the posterior fusion in the C-spine with mild erythema, but no drainage. No tenderness or swelling. He has a peripheral IV access. He is voiding spontaneously. No lymphadenopathy. HEENT: Ocular movements conjugate. Mild periorbital edema. Oral cavity normal. Teeth in good shape. NECK: Neck collar in place. LUNGS: Symmetric. Clear breath sounds. HEART: S1 and S2. Regular rate. No S3 or S4. ABDOMEN: Soft, not distended, or tender. Somewhat protuberant from the panniculus. No ascites. No bladder distention. No genital abnormalities. EXTREMITIES: No joint inflammatory activity. The patient has 2+ edema in lower extremities. Pulses 1+ in dorsalis pedis. NEURO: Shows normal strength. He is able to bear weight in extremities and able to ambulate without difficulty. He is awake, oriented, follows commands. A little bit of difficulty with recollection and orientation, but has improved since admission. LABORATORY STUDIES: White cell count is 8.9 and now 4.5, hemoglobin 9.9 and 8.0 , platelets are 603 and 469, and 66% neutrophils. Sodium 133, now 138; creatinine was 2.6, now 1.5. AST 36, ALT 17, alkaline phosphatase 117, albumin 3.8 and 3.0. Urinalysis on arrival with 7 to 10 wbc's. Two sets of blood cultures no growth thus far. Influenza A and B with negative results. Chest x-ray with no infiltrates. CT of lumbar, thoracic, cervical spine with some findings and the postop changes from fusion. There is a brain CT which was not remarkable. ASSESSMENT: 1. Longstanding human immunodeficiency virus infection with excellent control of viremia and adequate CD4. 2. Recurrent herpes simplex virus, usually manifesting as stomatitis. 3. Recent C-spine fusion with postop complications including Escherichia coli extended-spectrum beta-lactamase urinary tract sepsis and pulmonary embolism managed in [place] today. The patient was discharged without antimicrobial therapy and on Eliquis. 4. Altered mental status with fall, possibly associated with opioid medication for management of analgesia postoperatively associated with acute renal insufficiency. DISCUSSION: At this point, we do not have unequivocal evidence to suggest persistence of the urinary tract process and I would not advise antimicrobial therapy for that at this point in time. Continue Genvoya as previously and check CD4 cell count and viral load. Still a little bit confused, probably worthwhile to keep him here until tomorrow to make sure that there is stability in his further improvement in renal function. Job ID: [id number] [facility]
[2019-09-18 16:26] VITALS: BP 110/74; TEMP 98
[2019-09-18] MEDS ORDERED: Carvedilol 3.125 MG TAB PO SCH (17:00)
[2019-09-18] MEDS ORDERED: Potassium Chloride 20 MEQ TAB PO SCH (17:00)
[2019-09-18] MEDS ORDERED: tiZANidine HCl 4 MG TAB PO SCH (21:00)
[2019-09-18] MEDS ORDERED: Escitalopram Oxalate 10 mg Tablet PO SCH (21:00)
[2019-09-18] MEDS ORDERED: Apixaban 5 MG TAB PO SCH (21:00)
[2019-09-18] MEDS ORDERED: (Elviteg/Cob/Emtri/Tenof Alafen [Genvoya Tablet] 1 TAB) PO SCH (21:00)
[2019-09-18] MEDS ORDERED: Latanoprost 0.005% Ophth Soln 2.5 ml Bottle EA EYE SCH (21:00)
[2019-09-19] MEDS ORDERED: Metamucil PACK PO SCH (09:00)
[2019-09-20 16:09] LABS: %CD4 (Helper/Inducer) 46.5 % (30.8-58.5); Absolute CD4 744 /uL (359-1519); Lymphocytes/Gated Cell Count 1.6 x10E3/uL (0.7-3.1); Total Lymphocyte 33 % (Not Estab.); WBC Total Count 4.9 x10E3/uL (3.4-10.8)
== END 2019-09-18 17:26 | disposition home or self-care (01) | DRG 682 ==
LOC: ERS 01:35 → SURG B 05:56
PROVIDERS: ADMIT Internal Medicine; ATTEND Internal Medicine
DX: N17.9 Acute kidney failure, unspecified (principal); G92 Toxic encephalopathy; E87.1 Hypo-osmolality and hyponatremia; E44.0 Moderate protein-calorie malnutrition; N18.2 Chronic kidney disease, stage 2 (mild); K21.9 Gastro-esophageal reflux disease without esophagitis; G25.81 Restless legs syndrome; F41.9 Anxiety disorder, unspecified; F32.9 Major depressive disorder, single episode, unspecified; Z21 Asymptomatic human immunodeficiency virus [HIV] infection status; D53.9 Nutritional anemia, unspecified; T36.8X5A Adverse effect of other systemic antibiotics, initial encounter; M48.061 Spinal stenosis, lumbar region without neurogenic claudication; Z68.23 Body mass index [BMI] 23.0-23.9, adult; Z86.711 Personal history of pulmonary embolism; Z79.01 Long term (current) use of anticoagulants; Z79.899 Other long term (current) drug therapy
CPT/HCPCS: 36415; 70450; 71045; 72125; 72128; 72131; 76770; 80053; 80069; 81003; 81015; 82570; 82607; 82746; 83605; 83735; 84300; 85025; 85048; 85610; 85730; 86361; 87040; 87086; 87536; 89190; 93005; 96360; 96361

== ENCOUNTER 2019-12-11 10:16 | Outpatient (CLI) | payer BC ==
--- NOTE | 2019-12-11 11:02 | CT ---
CT Cervical Spine WO Con HISTORY: Follow-up postsurgery. COMPARISON: 09/17/2019 exam. FINDINGS: Extensive postoperative changes are noted. Postop fusion hardware is seen extending from C2 to the T3 level. There is anterior plate and screws placed at the C3-4 level. The laminectomy changes extend from C2 to the C7 level. Stable compression changes of the superior endplate of T1 and T2. CT 3: Mild bilateral foraminal narrowing. C3-4: Moderate bilateral foraminal stenosis more severe on the left. C4-5: Moderate bilateral foraminal stenosis more severe on the right. C5-6: Bilateral foraminal narrowing more severe on the left. C6-7: No significant foraminal stenosis. IMPRESSION: 1. Stable postop changes of the spine. 2. Multilevel areas of foraminal stenosis with prominent degenerative facet changes noted.
== END 2019-12-11 10:17 | disposition home or self-care (01) ==
LOC: SCSCT 10:16
DX: Z47.89 Encounter for other orthopedic aftercare (principal); Z98.1 Arthrodesis status; M48.02 Spinal stenosis, cervical region; M47.812 Spondylosis without myelopathy or radiculopathy, cervical region
CPT/HCPCS: 72125

== ENCOUNTER 2019-12-20 12:03 | Outpatient (CLI) | payer BC ==
--- NOTE | 2019-12-20 14:06 | MRI ---
EXAM: RIGHT SHOULDER MRI WITHOUT IV CONTRAST: 12/20/19 HISTORY: Impingement syndrome right shoulder. FINDINGS: There are AC joint arthrosis changes with downsloping of the lateral acromion and minimal undersurfac e spurring as well as downsloping of the anterior acromion with fluid in the subacromial subdeltoid b ursa and some subchondral cystic changes of the AC joint. There is a nonretracted insertional tear of the supraspinatus tendon particularly anteriorly with posterior extension of the tear involving the undersurface with some partial thickness undersurface retraction back to the level of the rotator cab le extending into the conjoint tendon as well as the anterior infraspinatus tendon with some minimal associated delamination. Subscapularis tendinopathy with undersurface and minimally delaminating tear s, small. Thickening and increased signal of the bicipital tendon at the level of the upper bicipital groove and intra-articularly evidence for focal tendinopathy with some probable associated interstit ial tearing. Minimal abnormal signal and some associated free edge irregularity of the posterior port ion of the superior labrum, evidence for a SLAP type tear extending posteriorly primarily. Mild muscl e volume loss of the supraspinatus muscle. No acute osteochondral defect or abnormal marrow edema. IMPRESSION: Rotator cuff tears and associated tendinopathy. AC joint arthrosis with downsloping of the anterior a nd lateral acromion. Mild muscle volume loss of the supraspinatus muscle. Small poorly defined labrum in the region of the posterior superior labrum probably related to degenerative tearing and/or frayi ng. POS: RRE
== END 2019-12-20 12:04 | disposition home or self-care (01) ==
LOC: SCSMRI 12:03
PROVIDERS: ATTEND Orthopaedic Surgery
DX: M75.41 Impingement syndrome of right shoulder (principal); M75.101 Unspecified rotator cuff tear or rupture of right shoulder, not specified as traumatic; M19.011 Primary osteoarthritis, right shoulder; M25.811 Other specified joint disorders, right shoulder